=== PATIENT | male | born 1970 | race Caucasian/White ===

== ENCOUNTER 2019-08-29 20:02 | Emergency (ER) | payer OTHER, MEDICAID, SELFPAY ==
[2019-08-29 20:08] VITALS: BP 137/59; PULSE 89; RESP 19; TEMP 37.4; O2SAT 95; BMI 24.3
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
--- NOTE | 2019-08-29 20:13 | PC.NURSE ---
pt presents with complaint of 1 year old laceration to back of left calf that is not healing - wound is well healed 4 cm scar tissue, surrounding tissue has dry scaly scabbed surface, pt states that previously small worm like or maggot like things have emerged from open scab
[2019-08-29] MEDS: BACITRACIN OINT 0.9 GM PCKT 1 APPLIC TOP (20:35)
== END 2019-08-29 20:43 | disposition home or self-care (01) ==
PROVIDERS: Emergency Provider Nurse Practitioner
DX: S81.802A Unspecified open wound, left lower leg, initial encounter (principal)
CPT/HCPCS: 99283

== ENCOUNTER 2019-10-04 09:07 | Emergency (ER) | payer OTHER, MEDICAID, SELFPAY ==
[2019-10-04 09:14] VITALS: BP 153/97; PULSE 68; RESP 16; TEMP 36.6; O2SAT 97; BMI 25.8
[2019-10-04 11:29] VITALS: BP 148/80; PULSE 80; RESP 16; O2SAT 97
--- NOTE | 2019-10-04 14:49 | ED.SKABFB ---
HPI - Skin/Abscess/Foreign Bdy <Joel ÁlvarezChrisColebria [facility] - Last Filed: 10/04/19 20:59> General Chief complaint: Skin/Abscess/Foreign Body Stated complaint: RASH ON CHEST/BACK,GASH ON BACK OF LEG Time Seen by Provider: 10/04/19 11:04 Mode of arrival: Ambulatory Limitations: no limitations History of Present Illness HPI narrative: This is a 49-year-old male, smoker, who presents to ED with left posterior all leg crusted lesion for months and scattered, multiple crusted pustules surrounded on anterior chest and abdomen for days. Patient reports his family members including his son and grandkids has similar rashes and his grandchildren are being treated with aura antibiotic medication. Patient reports this rash is being itching and painful. His son used [id number] Benadryl medication which patient found to be helpful. He denies fever, chills, nausea or vomiting. Patient had not use any self-treatment prior coming into ED. Related Data Previous Rx's Medication Instructions Recorded omeprazole 40 mg PO BID #60 cap 10/08/17 doxycycline hyclate 100 mg PO BID 7 Days #14 tab 10/04/19 mupirocin 1 applictn TOP BID #22 gram 10/04/19 Allergies Allergy/AdvReac Type Severity Reaction Status Date / Time Penicillins [PENICILLINS] Allergy Unknown Unverified 01/18/18 13:09 Review of Systems <Joel GurvinderColebria [facility] - Last Filed: 10/04/19 20:59> Review of Systems Narrative: General: Denies fever, chills, fatigue, malaise, sweats. HEENT: Denies sinus pain, ear pain, sore throat, difficulty swallowing, dizziness. Respiratory: Denies dyspnea, cough, wheezing, hemoptysis, sputum. Cardiovascular: Denies chest pain, palpitations, orthopnea, edema. Gastrointestinal: Denies nausea, vomiting, abdominal pain, diarrhea, constipation, melena. : Denies dysuria, frequency, incontinence, hematuria, urinary retention. Musculoskeletal: Denies weakness, joint pain or bony pain. Skin: See HPI Neurologic: Denies weakness, headache, numbness, change in speech, confusion, seizures, incoordination. Psychiatric: No concerning psychosocial issues. 12-point review of systems is negative except for those stated above. Patient History <Joel SchulzLOLITA - Last Filed: 10/04/19 20:59> Social History Smoking Status: Current every day smoker Smoking Status: Current every day smoker Substance Use Type: marijuana Exam <Joel SchulzLOLITA - Last Filed: 10/04/19 20:59> Narrative Exam Narrative: General appearance: well developed, well nourished, in no acute distress. Head: normocephalic, atraumatic, no scalp lesions, non-tender. ENT: Bilateral auditory canals and tympanic membranes clear. Hearing grossly intact. Nose without bleeding, purulent discharge, septal hematoma or deviation. Turbinate without erythema or swelling. Facial sinuses nontender to palpate. Mucous membrane moist, no mucosal lesion. Throat without erythema, tonsillar hypertrophy or exudate. Uvula in midline, airway patent. Neck/Thyroid: neck supple, full range of motion, no visible masses or meningeal signs. No JVD, non-tender without lymphadenopathy. Skin: multiple erythematous, pustules with honey colored crusted rash in bilateral upper chest and abdomen. A large elevated, scaly, lesion in left posterior leg without erythema, drainage, warmth Heart: no clubbing, no cyanosis, no edema. S1 and S2 normal. RRR w/o murmurs, clicks, or bruits. Lungs: Breathing even and unlabored. No stridor. No accessory muscles used. Able to speak in full sentences. Chest: normal shape and expansion. Abdomen: non-obese, non-distended. Neurologic: alert and oriented. Cognitive exam, SIGN LANGUAGE TRANSLATOR and PNS grossly intact on informal exam. Psych: good eye contact, normal affect. Initial Vital Signs Initial Vital Signs: Vital Signs Temperature 97.8 F 10/04/19 09:14 Pulse Rate 68 10/04/19 09:14 Respiratory Rate 16 10/04/19 09:14 Blood Pressure 153/97 H 10/04/19 09:14 Pulse Oximetry 97 10/04/19 09:14 <Lesia Frank DO - Last Filed: 10/05/19 07:31> Initial Vital Signs Initial Vital Signs: Vital Signs Temperature 97.8 F 10/04/19 09:14 Pulse Rate 68 10/04/19 09:14 Respiratory Rate 16 10/04/19 09:14 Blood Pressure 153/97 H 10/04/19 09:14 Pulse Oximetry 97 10/04/19 09:14 Scores <Joel SchulzLOLITA - Last Filed: 10/04/19 20:59> GCS Duff coma scale eye opening: Spontaneous Sissy coma scale verbal response: Orientated Sissy coma scale motor response: Obey commands Duff coma scale total score: 15 Course <Joel GrovesLOLITA fraser - Last Filed: 10/04/19 20:59> Vital Signs Vital signs: Vital Signs - 8 hr 10/04/19 11:29 Pulse Rate 80 Respiratory Rate 16 Blood Pressure 148/80 H Pulse Oximetry 97 <Lesia Frank DO - Last Filed: 10/05/19 07:31> Vital Signs Vital signs: Vital Signs - 8 hr 10/04/19 11:29 Pulse Rate 80 Respiratory Rate 16 Blood Pressure 148/80 H Pulse Oximetry 97 MDM - Skin/Abscess/Foreign Bdy <Joel SchulzLOLITA - Last Filed: 10/04/19 20:59> Differential Diagnosis Differential diagnosis: Likely herpes zoster, cellulitis, impetigo and contact dermatitis Medical Records Attestation: I reviewed the patient's medical records. [facility] Narrative Medical decision making narrative: This is a 49-year-old male who presents to ED with honey crusted pustule in bilateral chest and abdomen with 1 isolated lesion in the left posterior leg. Patient denies constitutional symptoms. Patient reports itching and discomfort on affected sites. Patient reports family member has similar problems. Patient denies using new products. Herpes zoster was considered but not likely since patient has the rash in bilateral chest without following the nerve track distribution. Given patient's family history and physical exam which resembles impetigo, patient was discharged to home with antibiotic medication doxycycline b.i.d. for 7 day course and mupirocin 2% ointment for topical use. Return precautions were discussed with the patient. Patient advised not to going to hot tub until the rash clears. Patient verbalized understanding and agrees with the treatment plan. Discharge Plan Departure Patient Disposition: Home Clinical Impression: Impetigo Discharge Date/Time: 10/04/19 11:29 Instructions: DI for Impetigo Activity Restrictions/Additional Instructions: You have been diagnosed with [skin lesion in posterior left leg and impetigo type rash on her chest and abdomen]. What to do: *Take your medications as directed. Please start antibiotic medication called doxycycline every 12 hours for next 7 days. You can use mupirocin antibiotic ointment on affected site twice a day. Please do not go in to hot tub until your lesions are healed. *Follow up with your primary care provider in 2-3 days, call for an appointment. Let them know you were seen in the ED and that we asked you to be seen in follow up. *Return to ED if you have any new, worsening, or concerning symptoms, such as [fever, chest pain, breathing difficulty, unable to tolerate fluids, or any acute concerns]. Prescriptions: New mupirocin 2 % ointment 1 applictn TOP BID Qty: 22 RF: 0 doxycycline hyclate 100 mg tablet 100 mg PO BID 7 Days Qty: 14 RF: 0 No Action omeprazole 40 MG capsule,delayed release(DR/EC) 40 mg PO BID Qty: 60 RF: 1 Referrals: [facility] [Outside]
== END 2019-10-04 11:29 | disposition home or self-care (01) ==
PROVIDERS: Emergency Provider Nurse Practitioner Family
DX: L01.00 Impetigo, unspecified (principal)
CPT/HCPCS: 99281; 99282

== ENCOUNTER 2020-03-13 20:20 | Emergency (ER) | payer OTHER, MEDICAID, SELFPAY ==
[2020-03-13 20:25] VITALS: BP 177/90; PULSE 67; RESP 16; TEMP 36.9; O2SAT 97; BMI 26.3
--- NOTE | 2020-03-13 20:40 | PC.NURSE ---
Pt states has a tooth abscess pain to right upper tooth and jaw, took 4 alleve today without relief. States hasn't seen dentist in years and doesn't need to.
[2020-03-13] MEDS: CLINDAMYCIN 150 MG CAPSULE 450 MG PO (20:59)
--- NOTE | 2020-03-13 20:59 | ED.DENTAL ---
HPI - Dental/Oral <LOLITA Cortes - Last Filed: 03/13/20 21:08> General Chief complaint: Dental/Oral Stated complaint: States abcessed tooth Time Seen by Provider: 03/13/20 20:44 Source: patient Mode of arrival: Ambulatory Limitations: no limitations History of Present Illness HPI Narrative: 49-year-old male presents emergency department for right upper tooth pain for the past week. He states he noticed 2 days ago he developed swelling. Patient states he has had this in the past and was given antibiotics which helped resolve the problem. Does not currently have a dentist but is open to referrals. Patient denies any other on complications such as difficulty swallowing, chest pain, shortness of breath, abdominal pain, fevers, nasal pain, sinus pain, or any other concerns. He states he frequently smokes tobacco and marijuana, recently smoked minutes before coming in. Patient reports penicillin allergy. Related Data Previous Rx's Medication Instructions Recorded omeprazole 40 mg PO BID #60 cap 10/08/17 mupirocin 1 applictn TOP BID #22 gram 10/04/19 clindamycin HCl 300 mg PO TID 7 Days #21 cap 03/13/20 Allergies Allergy/AdvReac Type Severity Reaction Status Date / Time Penicillins [PENICILLINS] Allergy Unknown Unverified 01/18/18 13:09 Review of Systems <LOLITA Cortes - Last Filed: 03/13/20 21:08> Review of Systems Narrative: REVIEW OF SYSTEMS: GENERAL: Denies fever or chills. HENT: Denies head trauma. Reports tooth pain and swelling to upper right side of mouth. EYE: Denies double vision or vision loss. CARDIOVASCULAR: Denies syncope. MUSCULOSKELETAL: Denies weakness, or deformities. INTEGUMENTARY: Denies any rash. NEURO: Denies numbness or tingling. Patient History <LOLITA Cortes - Last Filed: 03/13/20 21:08> Medical History Acute pancreatitis (Acute) Social History Smoking Status: Current every day smoker Smoking Status: Current every day smoker Substance Use Type: marijuana Exam <LOLITA Cortes - Last Filed: 03/13/20 21:08> Initial Vital Signs Initial Vital Signs: Vital Signs Temperature 98.4 F 03/13/20 20:25 Pulse Rate 67 03/13/20 20:25 Respiratory Rate 16 03/13/20 20:25 Blood Pressure 177/90 H 03/13/20 20:25 Pulse Oximetry 97 03/13/20 20:25 PHYSICAL EXAMINATION: GENERAL: Poor hygiene, alert, and cooperative. Answers questions promptly and appropriately. Vital signs noted. HENT: Normocephalic, atraumatic. Small abscess approximately 3.5 cm by 2 cm noted to gingiva above to number 3-5, MILD GINGIVITIS. MULTIPLE CARIES NOTED. Oropharynx without erythema or swelling. No tenderness to palpation of sinuses. RESPIRATORY: Normal respiratory rate, trachea midline, airway patent. No stridor, nasal flaring or accessory muscle use. MUSCULOSKELETAL: Normal gait and coordination. Equal tone and mass bilaterally. EXTREMITIES: CMS intact. Moves all extremities. SKIN: Warm, dry, soft, appropriate color for ethnicity. NEURO: Alert and Oriented X 3. Good coordination. PSYCH: Appropriate affect and mood. <Myla Brooks MD - Last Filed: 03/14/20 04:28> Initial Vital Signs Initial Vital Signs: Vital Signs Temperature 98.4 F 03/13/20 20:25 Pulse Rate 67 03/13/20 20:25 Respiratory Rate 16 03/13/20 20:25 Blood Pressure 177/90 H 03/13/20 20:25 Pulse Oximetry 97 03/13/20 20:25 Procedures <LOLITA Cortes - Last Filed: 03/13/20 21:08> Abscess I/D I&D #1: Site: oral Side (if applicable): right Amount of anesthesia used (mL): 2 Technique: incised with #11 blade Amount of fluid expressed (mL): 8 Irrigation: Yes Packing used?: none Complications: pain Course <LOLITA Cortes - Last Filed: 03/13/20 21:08> Orders Ordered: Discontinued Medications Clindamycin HCl (Cleocin) 450 mg PO NOW ONE Stop: 03/13/20 20:55 Last Admin: 03/13/20 20:59 Dose: 450 mg Documented by: OANHL Vital Signs Vital signs: Vital Signs - 8 hr 03/13/20 20:25 Temperature 98.4 F Pulse Rate 67 Respiratory Rate 16 Blood Pressure 177/90 H Pulse Oximetry 97 <Myla Brooks MD - Last Filed: 03/14/20 04:28> Orders Ordered: Discontinued Medications Clindamycin HCl (Cleocin) 450 mg PO NOW ONE Stop: 03/13/20 20:55 Last Admin: 03/13/20 20:59 Dose: 450 mg Documented by: MMCFARL Vital Signs Vital signs: Vital Signs - 8 hr 03/13/20 20:25 Temperature 98.4 F Pulse Rate 67 Respiratory Rate 16 Blood Pressure 177/90 H Pulse Oximetry 97 [facility] - Dental/Oral <LOLITA Cortes - Last Filed: 03/13/20 21:08> Medical Records Attestation: I reviewed the patient's medical records. Lab Data Attestation: I reviewed the patient's lab results. [facility] Narrative Medical decision making narrative: 49-year-old male presenting to the emergency department for dental pain without external swelling. Patient has multiple caries noted on examination and a small abscess that concern for surrounding cellulitis due to lack of external swelling, erythema, or tenderness. Simple abscess visualized on examination, less concern for spread of abscess into sinuses due to lack of pain. Patient is also hemodynamically stable without elevated temp or tachycardia. Patient was placed on clindamycin due to allergy to penicillins. Patient was given a list of resources nearby dentists. Patient agreed to plan of care verbalized understanding. Return precautions given for new or worsening symptoms. Discharge Plan Departure Patient Disposition: Home Clinical Impression: Dental abscess Discharge Date/Time: 03/13/20 21:08 Instructions: Tooth Abscess Activity Restrictions/Additional Instructions: Thank you for entrusting me with your care today. As discussed, an tooth abscess was drained today. I have started you on antibiotics, please take these as directed. This medication was sent to [facility] in [place] It is very important that you follow-up with a dentist to prevent this issue from returning. Return emergency department for any new or worsening symptoms such as severe pain, chest pain, high fevers, uncontrollable vomiting, inability to swallow, or any other concerns. Prescriptions: New clindamycin HCl 300 mg capsule 300 mg PO TID 7 Days Qty: 21 RF: 0 No Action omeprazole 40 MG capsule,delayed release(DR/EC) 40 mg PO BID Qty: 60 RF: 1 mupirocin 2 % ointment 1 applictn TOP BID Qty: 22 RF: 0 <Myla Brooks MD - Last Filed: 03/14/20 04:28> Cosign ED Attending Cosignature Attestation: I was immediately available in the department for consultation throughout this patient's visit. I agree with documentation as above. Myla Brooks MD
== END 2020-03-13 21:08 | disposition home or self-care (01) ==
PROVIDERS: Emergency Provider Nurse Practitioner
DX: K04.7 Periapical abscess without sinus (principal)
CPT/HCPCS: 41800; 99283

== ENCOUNTER 2021-11-11 14:20 | Emergency (ER) | payer OTHER, MEDICAID, SELFPAY ==
[2021-11-11 14:27] VITALS: BP 119/60; PULSE 59; RESP 16; TEMP 37.1; O2SAT 97
--- NOTE | 2021-11-11 16:01 | ED.SKABFB ---
HPI - Skin/Abscess/Foreign Bdy General Chief complaint: Skin/Abscess/Foreign Body Stated complaint: wants something removed from ear Time Seen by Provider: 11/11/21 14:31 Source: patient Mode of arrival: Ambulatory History of Present Illness HPI narrative: Patient is a 51-year-old male who is here for evaluation of he describes as drainage and itching and tingling to his right ear. 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 Has not been evaluated. He states that just recently he has had drainage from the area. Other than trying to express material from it at home he has had no other interventions. No problems with hearing. Related Data Previous Rx's Medication Instructions Recorded omeprazole 40 mg capsule,delayed 40 mg PO BID #60 cap 10/08/17 release mupirocin 2 % topical ointment 1 applictn TOP BID #22 gram 10/04/19 bacitracin 500 unit/gram topical 1 applic TOPICAL BID #14 g 11/11/21 ointment Allergies Allergy/AdvReac Type Severity Reaction Status Date / Time Penicillins [PENICILLINS] Allergy Unknown Unverified 01/18/18 13:09 Review of Systems Constitutional Constitutional: Reports as per HPI and Reports system reviewed and no additional complaints, except as documented ENT Ears, Nose, Mouth, and Throat: Reports system reviewed and no additional complaints, except as documented and Reports as per HPI Integumentary/Breasts Skin/Breast: Reports system reviewed and no additional complaints, except as documented and Reports as per HPI Patient History Medical History Acute pancreatitis Social History Smoking Status: Current every day smoker Smoking Status: Current every day smoker Substance Use Type: marijuana Exam Initial Vital Signs Initial Vital Signs: Vital Signs Temperature 98.8 F 11/11/21 14:27 Pulse Rate 59 L 11/11/21 14:27 Respiratory Rate 16 11/11/21 14:27 Blood Pressure 119/60 11/11/21 14:27 Pulse Oximetry 97 11/11/21 14:27 HENMT Ears: TM normal on the right, TM normal on the left, EAC's normal and other (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 No erythema. He does have a superficial abrasion on the antihelix of the right ear. There is no drainage. No surrounding erythema. Neuro General: patient alert and patient awake Extrem General: normal to inspection Course Vital Signs Vital signs: Vital Signs - 8 hr 11/11/21 14:27 Temperature 98.8 F Pulse Rate 59 L Respiratory Rate 16 Blood Pressure 119/60 Pulse Oximetry 97 MDM - Skin/Abscess/Foreign Bdy MDM Narrative Medical decision making narrative: Patient is disheveled and has sores on his body in various stages of healing. 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 He does have an abrasion over the anti helix of the right year. He has what appears to be scar tissue over this area consistent with a cauliflower ear. There is no fluctuance in the area. No surrounding erythema. Has unable to express any material from the area. No indication for systemic antibiotics. No indication for incision and drainage. Will provide topical antibiotic ointment. Informed patient he should stop picking at the area as it will most likely make symptoms worsen. He is given return precautions. Expressed understanding and agreement Discharge Plan Departure Patient Disposition: Home Clinical Impression: Ear pain, right Activity Restrictions/Additional Instructions: I recommend you use the topical antibiotic ointment like we discussed. Do your best to not pick at your right ear as this is going to cause more issues. Prescriptions: New bacitracin 500 unit/gram ointment 1 applic topical BID Qty: 14 0RF No Action omeprazole 40 MG capsule,delayed release(DR/EC) 40 mg PO BID Qty: 60 1RF mupirocin 2 % ointment 1 applictn TOP BID Qty: 22 0RF
== END 2021-11-11 16:09 | disposition home or self-care (01) ==
PROVIDERS: Emergency Provider Emergency Medicine
DX: H92.01 Otalgia, right ear (principal)
CPT/HCPCS: 99281